=== PATIENT | female | born 1980 | race Caucasian/White ===

== ENCOUNTER 2018-09-27 12:23 | Emergency (ER) | payer OTHER, MEDICAID ==
[~2018-09-27] VITALS: Ht 162.6 cm; Wt 111.6 kg
[2018-09-27 12:38] VITALS: Ht 162.6 cm; Wt 111.6 kg
[2018-09-27 15:55] LABS: CALCIUM 8.9 mg/dL (8.5-10.1); CARBON DIOXIDE 25.3 mmol/L (21-32); CHLORIDE SERUM 97 mmol/L (98-107); CREATININE SERUM 0.7 mg/dL (0.6-1.0); GFR1 > 60 mL/min; GLUCOSE SERUM 297 mg/dL (74-106); POTASSIUM SERUM 3.9 mmol/L (3.5-5.1); SODIUM SERUM 133 mmol/L (136-145)
[2018-09-27 16:00] LABS: ALBUMIN 3.5 g/dL (3.4-5.0); ALKALINE PHOSPHATASE 121 U/L (46-116); ALT/SGPT 65 U/L (14-59); AMYLASE 37 U/L (25-115); AST/SGOT 65 U/L (15-37); LIPASE 273 IU/L (73-393)
[2018-09-27 16:01] LABS: BASOPHIL % 0.5 % (0-2); PLATELET COUNT 385 x10^3mcL (130-400)
[2018-09-27 16:02] LABS: RED CELL DISTRIBUTION WIDTH 16.1 % (11.5-14.5)
[2018-09-27 16:10] LABS: TOTAL PROTEIN, SERUM 8.3 g/dL (6.4-8.2)
[2018-09-27 19:17] VITALS: BP 124/69
== END 2018-09-27 19:17 | disposition home or self-care (01) ==
LOC: ED 12:23
PROVIDERS: Specialist
DX: R10.12 Left upper quadrant pain (principal); R10.32 Left lower quadrant pain; R19.7 Diarrhea, unspecified; I10 Essential (primary) hypertension; E11.9 Type 2 diabetes mellitus without complications; F20.9 Schizophrenia, unspecified
CPT/HCPCS: J1885; J7030